=== PATIENT | male | born 1960 | race African-American/Black ===

== ENCOUNTER 2020-01-19 13:52 | Inpatient (IN) ==
[2020-01-19 15:54] LABS: Basophils # 0.1 10*3/uL (0.0-0.2); Basophils % 0.3 % (0.0-0.8); Eosinophils # 0.3 10*3/uL (0.0-0.87); Eosinophils % 0.9 % (0.00-10.9); Hematocrit 39.3 VOL% (42.0-52.0); Hemoglobin 12.2 GM/DL (14.0-18.0); Immature Granulocytes % 2.5 %; Immature Granulocytes Absolute 0.85 #; Lymphocytes # 3.9 10*3/uL (1.4-4.0); Lymphocytes % 11.7 % (21.2-54.2); Mean Platelet Volume 8.7 FL (9.6-12.0); Monocytes % 8.5 % (1.7-12.7); Neutrophils % 76.1 % (38.7-73.9); Platelet Count 545 T/CUMM (130-400); Red Blood Count 3.97 MC/CUMM (3.8-5.5); Red Cell Distribution Width 12.9 % (9.3-17.3); White Blood Count 33.4 T/CUMM (4-12)
[2020-01-19] MEDS ORDERED: cefTRIAXone 1,000 MG in SODIUM CHLORIDE 0.9% 100 ML IV STA (16:15)
[2020-01-19] MEDS ORDERED: SODIUM CHLORIDE 0.9% 1,000 ML IV STA (16:15)
[2020-01-19 16:21] LABS: Albumin 2.6 G/DL (3.4-5.0); Calcium 8.6 MG/DL (8.5-10.1); Osmolality,Calculated 263.4 MOS/KG (273-304); Total Protein 7.1 G/DL (6.4-8.3)
[2020-01-19 16:44] LABS: Lymphocytes 8 % (20-55); Segmented Neutrophils 84 % (50-85); Total Cells Counted 100
[2020-01-19 16:45] LABS: Anisocytosis Slight; Hypochromasia Slight
[2020-01-19] MEDS ORDERED: ONDANSETRON 4 MG/2 ML VIAL IV PRN (18:54)
[2020-01-19] MEDS ORDERED: ACETAMINOPHEN 325 MG TABLET PO PRN (18:54)
[2020-01-19] MEDS: ALBUTEROL/IPRATROPIUM 3 ML NEB RESP TX SCH (20:35)
[2020-01-19] MEDS: SODIUM CHLORIDE 0.9% 1,000 ML IV SCH (22:25)
[2020-01-19] MEDS: AZITHROMYCIN INJ 500 MG in SODIUM CHLORIDE 0.9% 250 ML IV SCH (22:25)
[2020-01-19] MEDS: ENOXAPARIN 40 MG/0.4 ML SYRINGE SUBCUT SCH (22:27)
[2020-01-20] MEDS: ALBUTEROL/IPRATROPIUM 3 ML NEB RESP TX SCH ×4 (00:36→19:05)
[2020-01-20] MEDS ORDERED: INFLUENZA VIRUS VACCINE 0.5 ML SYRINGE IM ONE (02:18)
[2020-01-20 05:19] LABS: Basophils # 0.1 10*3/uL (0.0-0.2); Basophils % 0.2 % (0.0-0.8); Eosinophils # 0.3 10*3/uL (0.0-0.87); Hematocrit 35.1 VOL% (42.0-52.0); Hemoglobin 10.8 GM/DL (14.0-18.0); Immature Granulocytes Absolute 0.55 #; Lymphocytes # 3.1 10*3/uL (1.4-4.0); Lymphocytes % 11.2 % (21.2-54.2); Mean Corpuscular HGB Conc 30.8 GM/DL (32-36); Mean Corpuscular Volume 98.3 FL (87-102); Mean Platelet Volume 9.3 FL (9.6-12.0); Monocytes % 8.5 % (1.7-12.7); Neutrophils % 77.1 % (38.7-73.9); Platelet Count 485 T/CUMM (130-400); Red Blood Count 3.57 MC/CUMM (3.8-5.5); Red Cell Distribution Width 12.9 % (9.3-17.3); White Blood Count 27.4 T/CUMM (4-12)
[2020-01-20 05:35] LABS: Calcium 8.1 MG/DL (8.5-10.1); Risk Ratio 3.52
[2020-01-20 05:48] LABS: Band Neutrophils 2 % (0-10); Lymphocytes 12 % (20-55); Platelet Estimate Increased; Segmented Neutrophils 78 % (50-85); Total Cells Counted 100
[2020-01-20 05:49] LABS: Anisocytosis 1+; Hypochromasia 2+; Macrocytosis 1+
[2020-01-20] MEDS: SODIUM CHLORIDE 0.9% 1,000 ML IV SCH ×2 (07:42→18:46)
[2020-01-20] MEDS ORDERED: methylPREDNISolone SOD SUC 125 MG/2 ML VIAL IV ONE (09:20)
[2020-01-20] MEDS: PANTOPRAZOLE 40 MG TABLET PO SCH (09:44)
[2020-01-20] MEDS ORDERED: PIPERACILLIN/TAZOBACTAM 3,375 MG in SODIUM CHLORIDE 0.9% 100 ML IV SCH (12:30)
[2020-01-20] MEDS: methylPREDNISolone SOD SUC 125 MG/2 ML VIAL IV SCH ×3 (15:14→21:02)
[2020-01-20] MEDS ORDERED: cefTRIAXone 1,000 MG in SYRINGE 1 EACH IV SCH (16:00)
[2020-01-20] MEDS: CLINDAMYCIN INJ 900 MG in PREMIX 1 EACH IV SCH (18:46)
[2020-01-20] MEDS: AZITHROMYCIN INJ 500 MG in SODIUM CHLORIDE 0.9% 250 ML IV SCH (20:49)
[2020-01-20] MEDS: ENOXAPARIN 40 MG/0.4 ML SYRINGE SUBCUT SCH (20:49)
[2020-01-21] MEDS: ALBUTEROL/IPRATROPIUM 3 ML NEB RESP TX SCH ×4 (00:10→21:20)
[2020-01-21] MEDS: CLINDAMYCIN INJ 900 MG in PREMIX 1 EACH IV SCH ×3 (01:12→17:56)
[2020-01-21] MEDS: methylPREDNISolone SOD SUC 125 MG/2 ML VIAL IV SCH ×3 (05:45→17:53)
[2020-01-21 06:20] LABS: Basophils % 0.1 % (0.0-0.8); Hematocrit 32.9 VOL% (42.0-52.0); Hemoglobin 10.6 GM/DL (14.0-18.0); Immature Granulocytes % 2.3 %; Immature Granulocytes Absolute 0.86 #; Lymphocytes # 1.7 10*3/uL (1.4-4.0); Lymphocytes % 4.6 % (21.2-54.2); Mean Corpuscular HGB Conc 32.2 GM/DL (32-36); Mean Corpuscular Volume 95.9 FL (87-102); Mean Platelet Volume 9.4 FL (9.6-12.0); Monocytes % 2.5 % (1.7-12.7); Neutrophils % 90.5 % (38.7-73.9); Platelet Count 504 T/CUMM (130-400); Red Blood Count 3.43 MC/CUMM (3.8-5.5); White Blood Count 37.7 T/CUMM (4-12)
[2020-01-21 06:38] LABS: Calcium 8.4 MG/DL (8.5-10.1); Osmolality,Calculated 276.8 MOS/KG (273-304)
[2020-01-21 06:48] LABS: Lymphocytes 2 % (20-55); Segmented Neutrophils 97 % (50-85); Total Cells Counted 100
[2020-01-21 06:49] LABS: Hypochromasia 1+; Macrocytosis Slight; Platelet Estimate Adequate
[2020-01-21] MEDS: PANTOPRAZOLE 40 MG TABLET PO SCH (10:23)
[2020-01-21] MEDS: SODIUM CHLORIDE 0.9% 1,000 ML IV SCH ×3 (10:23→21:29)
[2020-01-21] MEDS ORDERED: AZITHROMYCIN 250 MG TABLET PO SCH (21:00)
[2020-01-22] MEDS: CLINDAMYCIN INJ 900 MG in PREMIX 1 EACH IV SCH ×2 (02:42→12:21)
[2020-01-22] MEDS: ALBUTEROL/IPRATROPIUM 3 ML NEB RESP TX SCH ×3 (02:44→12:28)
[2020-01-22 05:33] LABS: Basophils # 0.1 10*3/uL (0.0-0.2); Basophils % 0.2 % (0.0-0.8); Hematocrit 32.6 VOL% (42.0-52.0); Hemoglobin 10.1 GM/DL (14.0-18.0); Immature Granulocytes % 1.6 %; Immature Granulocytes Absolute 0.54 #; Lymphocytes # 1.3 10*3/uL (1.4-4.0); Lymphocytes % 3.8 % (21.2-54.2); Mean Corpuscular Volume 99.1 FL (87-102); Monocytes % 2.9 % (1.7-12.7); Neutrophils % 91.5 % (38.7-73.9); Platelet Count 488 T/CUMM (130-400); Red Blood Count 3.29 MC/CUMM (3.8-5.5); Red Cell Distribution Width 13.2 % (9.3-17.3); White Blood Count 34.1 T/CUMM (4-12)
[2020-01-22] MEDS: methylPREDNISolone SOD SUC 125 MG/2 ML VIAL IV SCH (05:47)
[2020-01-22 05:58] LABS: Band Neutrophils 1 % (0-10); Hypochromasia 1+; Lymphocytes 3 % (20-55); Macrocytosis Slight; Segmented Neutrophils 94 % (50-85); Total Cells Counted 100
[2020-01-22] MEDS ORDERED: LACTATED RINGERS 1,000 ML IV SCH (08:00)
[2020-01-22] MEDS ORDERED: LIDOCAINE 2% 5 ML VIAL ONE (10:00)
[2020-01-22] MEDS ORDERED: propofoL 200 MG/20 ML VIAL IV ONE (10:00)
[2020-01-22] MEDS: PANTOPRAZOLE 40 MG TABLET PO SCH (10:26)
[2020-01-22] MEDS ORDERED: FLUCONAZOLE 100 MG TABLET PO SCH (13:30)
[2020-01-22 15:55] VITALS: BP 115/71
[2020-01-22] MEDS ORDERED: INFLUENZA VIRUS VACCINE 0.5 ML SYRINGE IM ONE (16:17)
== END 2020-01-22 17:14 | disposition home or self-care (01) | DRG 178 ==
LOC: N.ED 13:52 → N.EDINP 18:54 → SUATTDRO 18:54 → N.5E 19:45
PROVIDERS: ADMIT Phlebology; ATTEND Internal Medicine

== ENCOUNTER 2020-01-23 19:46 | Observation (INO) ==
[2020-01-23] MEDS ORDERED: ONDANSETRON 4 MG/2 ML VIAL IV STA (20:14)
[2020-01-23] MEDS ORDERED: FAMOTIDINE 20 MG/2 ML VIAL IV STA (20:14)
[2020-01-23] MEDS ORDERED: methylPREDNISolone SOD SUC 125 MG/2 ML VIAL IV STA (20:14)
[2020-01-23] MEDS ORDERED: SODIUM CHLORIDE 0.9% 1,000 ML IV STA (20:14)
[2020-01-23] MEDS ORDERED: diphenhydrAMINE 50 MG/1 ML VIAL IV STA (20:14)
[2020-01-23 20:22] LABS: Basophils # 0.1 10*3/uL (0.0-0.2); Basophils % 0.2 % (0.0-0.8); Hematocrit 38.5 VOL% (42.0-52.0); Hemoglobin 11.8 GM/DL (14.0-18.0); Immature Granulocytes % 1.6 %; Immature Granulocytes Absolute 0.41 #; Lymphocytes # 2.8 10*3/uL (1.4-4.0); Lymphocytes % 10.9 % (21.2-54.2); Mean Corpuscular HGB Conc 30.6 GM/DL (32-36); Mean Corpuscular Volume 99.7 FL (87-102); Mean Platelet Volume 9.2 FL (9.6-12.0); Monocytes % 8.7 % (1.7-12.7); Neutrophils % 78.6 % (38.7-73.9); Platelet Count 569 T/CUMM (130-400); Red Blood Count 3.86 MC/CUMM (3.8-5.5); Red Cell Distribution Width 13.3 % (9.3-17.3); White Blood Count 25.5 T/CUMM (4-12)
[2020-01-23] MEDS ORDERED: ALBUTEROL NEB SOLN 5 MG/ML 20 ML/BOTTLE CONT NEB SCH (20:30)
[2020-01-23 20:33] LABS: INR 1.1; PT Patient Result 11.8 SECS (9.6-12.2); Partial Thromboplastin Time 26.8 SECS (20.8-36.0)
[2020-01-23 20:43] LABS: Alanine Aminotransferase 11 U/L (16-61); Albumin 2.5 G/DL (3.4-5.0); Alkaline Phosphatase 112 U/L (45-117); Aspartate Amino Transferase 12 U/L (0-37); Bilirubin,Total < 0.39 MG/DL (0.2-1.0); Blood Urea Nitrogen 14 MG/DL (7-18); Calcium 8.8 MG/DL (8.5-10.1); Estimated Glom Filtration Rate 101 ML/MIN; Glucose 108 MG/DL (74-106); Osmolality,Calculated 280.4 MOS/KG (273-304); Total Protein 7.6 G/DL (6.4-8.3); Troponin I < 0.015 NG/ML (0.00-0.045)
[2020-01-23] MEDS ORDERED: VANCOMYCIN INJ 1,000 MG in SODIUM CHLORIDE 0.9% 250 ML IV STA (20:57)
[2020-01-23] MEDS ORDERED: PIPERACILLIN/TAZOBACTAM 3,375 MG in SODIUM CHLORIDE 0.9% 100 ML IV STA (20:57)
[2020-01-23 21:10] LABS: Apearance,Urine Slightly Hazy (Clear); Bacteria,Urine Few /HPF (Few); Bilirubin,Urine Negative (Negative); Blood, Urine Negative (Negative); Glucose,Urine (UA) Negative (Negative); Ketones,Urine 5 mg/dL (Negative); Mucus,Urine Many /LPF (Occasional); Nitrite,Urine Negative (Negative); Protein,Urine Negative; RBC,Urine 8 /HPF (0-4); Sperm,Urine Few /HPF (Negative); Squamous Epithelial Cell,Urine Occasional /HPF (0-10); Urine Color Amber (Yellow); Urine Specific Gravity 1.029 (1.001-1.035); WBC,Urine 4 /HPF (0-6)
[2020-01-23 21:17] LABS: Lymphocytes 14 % (20-55); Segmented Neutrophils 80 % (50-85); Total Cells Counted 100
[2020-01-23 21:18] LABS: Anisocytosis 1+; Macrocytosis 1+; Reactive Lymphocytes 1+
[2020-01-23 21:19] LABS: Hypochromasia 2+; Polychromasia 1+
[2020-01-23 21:20] LABS: Platelet Estimate Increased
[2020-01-24] MEDS ORDERED: DOCUSATE SODIUM 100 MG CAPSULE PO PRN (00:54)
[2020-01-24] MEDS ORDERED: ONDANSETRON 4 MG/2 ML VIAL IV PRN (00:54)
[2020-01-24] MEDS ORDERED: ACETAMINOPHEN 325 MG TABLET PO PRN (00:54)
[2020-01-24] MEDS ORDERED: ALBUTEROL/IPRATROPIUM 3 ML NEB RESP TX PRN (00:54)
[2020-01-24 04:35] LABS: Basophils % 0.2 % (0.0-0.8); Hematocrit 34.8 VOL% (42.0-52.0); Hemoglobin 10.8 GM/DL (14.0-18.0); Immature Granulocytes % 1.6 %; Lymphocytes # 0.8 10*3/uL (1.4-4.0); Mean Corpuscular Volume 99.1 FL (87-102); Mean Platelet Volume 9.7 FL (9.6-12.0); Monocytes % 1.6 % (1.7-12.7); Neutrophils % 92.6 % (38.7-73.9); Platelet Count 497 T/CUMM (130-400); Red Blood Count 3.51 MC/CUMM (3.8-5.5); Red Cell Distribution Width 13.5 % (9.3-17.3); White Blood Count 18.9 T/CUMM (4-12)
[2020-01-24] MEDS: PIPERACILLIN/TAZOBACTAM 3,375 MG in SODIUM CHLORIDE 0.9% 100 ML IV SCH ×2 (04:36→13:25)
[2020-01-24 05:03] LABS: Calcium 8.4 MG/DL (8.5-10.1); Osmolality,Calculated 281.5 MOS/KG (273-304)
[2020-01-24 05:08] LABS: Lymphocytes 4 % (20-55); Segmented Neutrophils 96 % (50-85); Total Cells Counted 100
[2020-01-24 05:09] LABS: Platelet Estimate Normal
[2020-01-24] MEDS: ALBUTEROL 2.5 MG/3 ML NEB RESP TX SCH ×4 (07:14→20:02)
[2020-01-24] MEDS: ENOXAPARIN 40 MG/0.4 ML SYRINGE SUBCUT SCH (08:38)
[2020-01-24] MEDS: predniSONE 20 MG TABLET PO SCH (08:38)
[2020-01-24] MEDS: PANTOPRAZOLE 40 MG TABLET PO SCH (08:38)
[2020-01-24] MEDS ORDERED: VANCOMYCIN INJ 1,000 MG in SODIUM CHLORIDE 0.9% 250 ML IV SCH (10:00)
[2020-01-24] MEDS ORDERED: NICOTINE 21 MG/24 HR PATCH TRANSDERM PRN (10:21)
[2020-01-24 12:19] LABS: Barbiturates Screen,Urine Negative (Negative); Benzodiazepines Screen,Urine Negative (Negative); Cannabinoid Screen,Urine Negative (Negative); Opiate Screen,Urine Negative (Negative); Phencyclidine Screen,Urine Negative (Negative)
[2020-01-24] MEDS: AMOXICILLIN 500 MG CAPSULE PO SCH ×2 (13:57→21:31)
[2020-01-24] MEDS: metroNIDAZOLE 500 MG TABLET PO SCH ×2 (13:59→20:15)
[2020-01-25] MEDS: AMOXICILLIN 500 MG CAPSULE PO SCH ×3 (06:02→21:37)
[2020-01-25 06:21] LABS: Basophils % 0.2 % (0.0-0.8); Eosinophils % 0.2 % (0.00-10.9); Hematocrit 33.1 VOL% (42.0-52.0); Immature Granulocytes % 1.7 %; Immature Granulocytes Absolute 0.33 #; Lymphocytes # 2.8 10*3/uL (1.4-4.0); Lymphocytes % 14.3 % (21.2-54.2); Mean Corpuscular HGB Conc 30.2 GM/DL (32-36); Mean Corpuscular Volume 100.6 FL (87-102); Mean Platelet Volume 9.3 FL (9.6-12.0); Monocytes % 8.8 % (1.7-12.7); Neutrophils % 74.8 % (38.7-73.9); Platelet Count 464 T/CUMM (130-400); Red Blood Count 3.29 MC/CUMM (3.8-5.5); Red Cell Distribution Width 13.7 % (9.3-17.3); White Blood Count 19.6 T/CUMM (4-12)
[2020-01-25] MEDS: ALBUTEROL 2.5 MG/3 ML NEB RESP TX SCH ×4 (07:32→21:02)
[2020-01-25] MEDS: metroNIDAZOLE 500 MG TABLET PO SCH ×3 (09:52→20:14)
[2020-01-25] MEDS: ENOXAPARIN 40 MG/0.4 ML SYRINGE SUBCUT SCH (09:52)
[2020-01-25] MEDS: PANTOPRAZOLE 40 MG TABLET PO SCH (09:52)
[2020-01-25] MEDS: predniSONE 20 MG TABLET PO SCH (09:52)
[2020-01-26] MEDS: AMOXICILLIN 500 MG CAPSULE PO SCH (05:32)
[2020-01-26 06:09] LABS: Basophils % 0.2 % (0.0-0.8); Eosinophils # 0.1 10*3/uL (0.0-0.87); Eosinophils % 0.4 % (0.00-10.9); Hematocrit 34.2 VOL% (42.0-52.0); Hemoglobin 10.4 GM/DL (14.0-18.0); Immature Granulocytes % 1.6 %; Immature Granulocytes Absolute 0.24 #; Lymphocytes # 3.1 10*3/uL (1.4-4.0); Lymphocytes % 20.1 % (21.2-54.2); Mean Corpuscular HGB Conc 30.4 GM/DL (32-36); Mean Corpuscular Volume 101.5 FL (87-102); Mean Platelet Volume 9.4 FL (9.6-12.0); Monocytes % 11.3 % (1.7-12.7); Neutrophils % 66.4 % (38.7-73.9); Platelet Count 445 T/CUMM (130-400); Red Blood Count 3.37 MC/CUMM (3.8-5.5); Red Cell Distribution Width 13.8 % (9.3-17.3); White Blood Count 15.4 T/CUMM (4-12)
[2020-01-26] MEDS: ALBUTEROL 2.5 MG/3 ML NEB RESP TX SCH ×2 (07:26→11:39)
[2020-01-26 08:00] VITALS: BP 123/62
[2020-01-26] MEDS: predniSONE 20 MG TABLET PO SCH (08:17)
[2020-01-26] MEDS: ENOXAPARIN 40 MG/0.4 ML SYRINGE SUBCUT SCH (08:17)
[2020-01-26] MEDS: PANTOPRAZOLE 40 MG TABLET PO SCH (08:17)
[2020-01-26] MEDS: metroNIDAZOLE 500 MG TABLET PO SCH (08:17)
[2020-01-28 00:29] LABS: Herpes Source PENILE
== END 2020-01-26 14:20 | disposition home or self-care (01) ==
LOC: EDUNIT# → EDBD → N.EDINP 19:46 → N.ED 19:46 → N.2W 01-24 00:34 → N.5E 01-24 09:56
PROVIDERS: ADMIT Internal Medicine; ATTEND Internal Medicine